=== PATIENT | male | born 1975 | race Caucasian/White ===

== ENCOUNTER 2019-07-24 23:40 | Emergency (ER) | payer BC ==
[~2019-07-24] VITALS: Ht 289.6 cm; Wt 188.4 kg
[2019-07-24] MEDS ORDERED: SYNTHROID100 MC1 PO (23:52)
[2019-07-24] MEDS ORDERED: MIGRAINE MEDICATION PO (23:52)
[2019-07-25 00:26] LABS: BASOPHILS 0.4 % (0.0-2.0); EOSINOPHILS 2.1 % (0.0-3.0); HEMATOCRIT 43.1 % (42.0-52.0); HEMOGLOBIN 14.5 gm/dL (14.0-18.0); LYMPHOCYTES 13.3 % (24.0-44.0); MCHC 33.7 g/dL (28.0-37.0); MCV 94.8 fL (80.0-100.0); MONOCYTES 10.8 % (1.0-8.0); PLATELET COUNT 283 thou/uL (150-400); POLYS 73.4 % (36.0-66.0); RBC 4.55 mil/uL (4.50-6.00); RDW 13.7 % (10.5-14.5); WBC 10.9 thou/uL (4.0-11.0)
[2019-07-25 00:27] LABS: ANION GAP 12 mmol/L (7-16); BUN 16 mg/dL (7-18); CALCIUM 8.6 mg/dL (8.5-10.1); CHLORIDE 103 mmol/L (98-107); CO2 24 mmol/L (21-32); CREATININE 0.9 mg/dL (0.7-1.3); GLUCOSE 140 mg/dL (74-106); POTASSIUM 4.4 mmol/L (3.5-5.1); SODIUM 139 mmol/L (136-145)
[2019-07-25 00:38] LABS: ALBUMIN 3.5 g/dL (3.4-5.0); DIRECT BILIRUBIN 0.1 mg/dL (<0.1-0.3); LIPASE 71 U/L (73-393); SGOT 17 U/L (15-37); SGPT 27 U/L (30-65); TOTAL BILIRUBIN 0.5 mg/dL (<0.1-1.0); TOTAL PROTEIN 7.6 g/dL (6.4-8.2); TROPONIN-I <0.06 ng/mL (<0.06)
[2019-07-25] MEDS ORDERED: NORCO 5-325 TA1 EAC1 PO (04:57)
[2019-07-25 05:12] VITALS: BP 118/83
--- NOTE | 2019-07-25 11:32 | EKG ---
[address] [employer] [place] [address] ELECTROCARDIOGRAM REPORT Name: JUAN LUIS CONSTANTINO Room #: DEP NAKIA Ferrell#: [id number] Admission: 07/24/19 Attend Phys: Discharge: 07/25/19 Date of : 71 Report #: [id number] THIS REPORT FOR: //name// [facility] ED Test Date: 2019-07-24 Test Time: 23:45:19 Pat Name: JUAN LUIS CONSTANTINO Department: Room: Gender: [employer] Processing Machine Operator: ANTWON : 1975 Requested By: Jannette Perry Order Number: [id number] MD: Richard Reardon Measurements Intervals [place] Rate: 93 P: 6 IA: 150 QRS: 45 QRSD: 104 T: 11 QT: 344 QTc: 428 Interpretive Statements Sinus rhythm No previous ECG available for comparison Electronically Signed On 07-25-2019 11:32:31 CDT by Richard Reardon [email or web address] <ELECTRONICALLY SIGNED> By: Richard Reardon MD 07/25/19 [id number] Richard Reardon MD /EPI
== END 2019-07-25 05:13 | disposition home or self-care (01) ==
LOC: EDBD 23:40 → ER 23:40
PROVIDERS: Emergency Medicine
DX: R07.89 Other chest pain (principal); R06.00 Dyspnea, unspecified; F17.210 Nicotine dependence, cigarettes, uncomplicated